=== PATIENT | female | born 1955 | race Two or more races ===

== ENCOUNTER → 2017-09-29 | Outpatient (CLI) | payer OTHER, MEDICAID | LOC: CIMAGING 15:40 | PROVIDERS: ATTEND Nurse Practitioner | DX: R22.42 Localized swelling, mass and lump, left lower limb (principal); R93.6 Abnormal findings on diagnostic imaging of limbs; Z85.72 Personal history of non-Hodgkin lymphomas | CPT/HCPCS: 76882-PO ==